=== PATIENT | male | born 1990 | race Caucasian/White ===

== ENCOUNTER → 2019-02-03 | Outpatient (CLI) | payer BC ==
[2019-02-03 14:36] LABS: ANION GAP 15.1; CHLORIDE,CL 105 mmol/L (101-111); SODIUM,NA 137 mmol/L (135-145)
== END ==
LOC: DL.CLIN 13:37
PROVIDERS: ATTEND Nurse Practitioner
DX: I10 Essential (primary) hypertension (principal)
CPT/HCPCS: 80053; 80061; 85025

== ENCOUNTER 2025-05-06 15:08 | Emergency (ER) | payer BC ==
[2025-05-06] MEDS: Lidocaine 1% with EPINEPHrine 1:100,000 20 ML MDV INJECT ONE (15:52)
[2025-05-06] MEDS: Diphtheria,Pertussis(Acell),Tetanus Vaccine 0.5 ML Syringe IM ONE (16:19)
[2025-05-06] MEDS: Bacitracin Oint 1 GM U/D Packet TOP ONE (16:20)
== END 2025-05-06 16:30 | disposition home or self-care (01) ==
LOC: DL.ED 15:08
DX: S61.412A Laceration without foreign body of left hand, initial encounter (principal); W45.8XXA Other foreign body or object entering through skin, initial encounter; Y99.0 Civilian activity done for income or pay; Z23 Encounter for immunization
CPT/HCPCS: 12002; 90471; 90715; 99282; 99283; A9270; J2004